=== PATIENT | female | born 1950 | race Caucasian/White ===

== ENCOUNTER 2017-07-17 05:37 | Day surgery (SDC) | payer MEDICARE, BC ==
[2017-07-14 09:43] VITALS: BMI 42.0
[2017-07-17] MEDS ORDERED: Thrombin 5000 UNITS/5 ML VIAL ONE (06:25)
[2017-07-17] MEDS ORDERED: Sodium Chloride 0.9% 10 ML ONE (06:25)
[2017-07-17] MEDS ORDERED: CEFAZOLIN/Water 2 GM/20 ML SYRINGE ONE ×2 (06:28→14:48)
[2017-07-17 06:37] LABS: Prothrombin Time 13.4 SEC (12.0-14.7)
[2017-07-17 06:38] LABS: PTT 34.8 SEC (22.9-36.1)
[2017-07-17] MEDS ORDERED: Fentanyl 100 MCG/2 ML VIAL ONE ×2 (06:38)
[2017-07-17] MEDS ORDERED: Midazolam HCl 2 mg/2 ml Vial ONE (06:38)
[2017-07-17] MEDS ORDERED: traMADol HCl 50 MG TAB PO PRN (12:10)
[2017-07-17] MEDS ORDERED: tiZANidine HCl 4 MG TAB PO PRN (12:10)
[2017-07-17] MEDS ORDERED: diphenhydrAMINE 50 MG/ML VIAL IVP PRN (12:10)
[2017-07-17] MEDS ORDERED: Ondansetron HCl/PF 4 MG/2 ML Vial IVP PRN (12:10)
[2017-07-17] MEDS ORDERED: Acetaminophen 325 MG TAB PO PRN (12:10)
[2017-07-17] MEDS ORDERED: Acetaminophen/Codeine 30-300mg Tablet PO PRN (12:10)
--- NOTE | 2017-07-17 12:35 | OP ---
DATE OF PROCEDURE: 07/17/2017 SURGEON: Les Paige M.D. INTEGRATED PEST MANAGEMENT TECHNICIAN: None. PREOPERATIVE INDICATION: Prevent neurological deterioration. 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 POSTOPERATIVE DIAGNOSES: Cervical spondylitic myelopathy, intervertebral disk disease with cord comp ression at C4-5 and C5-6. OPERATIVE PROCEDURE: Anterior cervical diskectomy, intervertebral arthrodesis, placement of interver tebral biomechanical devices and anterior cervical plating C4-C5 and C5-6, local morselized autograft , morselized Allograft, and operating microscope. PREOPERATIVE MEDICATIONS: Ancef 2 grams IV. DRAIN NUMBER: Zero. DRAIN TYPE: None. OPERATIVE DICTATION: The patient was brought to the operating room. General endotracheal anesthesia was induced. The patient was carefully positioned supine on the operating table with her head suppo rted by gel-filled donut shaped head rest. A lateral fluoro radiograph was used to plan our incision . The right side of the neck was sterilely prepped and draped. We opened with a 10 blade knife and controlled bleeding with bipolar and monopolar cautery. We dissected sharply to the platysma and cut this muscle in line with our incision. We continued our dissection medial to the sternocleidomastoi d and lateral to the trachea and esophagus until we arrived to prevertebral space. We placed a marke r at C4-C5 and took a lateral fluoro radiograph to confirm the level upon which we were operating. W e then elevated the longus colli muscles off the anterior surface of C4, C5, and C6, and placed self- retaining retractors beneath them. Distraction pins were placed at C4 and C6, and we distracted acro ss the intervening interspaces. We incised the interspaces with a 15 blade knife and removed disk co ntents using curettes and rongeurs. We brought the operating microscope into the field. Under microscopic magnification using microsurgical techniques, we carefully removed the remainder of the intervertebral disk. We removed the posterior longitudinal ligament and we accessed the ventral epidural space with a micro curet. Using Kerrison rongeurs across L4-L5 interspace, we removed the entire posterior longitudinal ligament and decompress from one nerve root all the way to the other in to the foramina and canal were widely decompressed. We turned our attention to C5-C6. Here, there w as a calcified disk fragment in the center of the canal. We had to approach it from both sides to re move it safely. This small remnant of disk and posterior longitudinal ligament was adherent behind t he C5 vertebral body. We left the corner there. Without doing a corpectomy, it could not be removed safely. However, there was pulsation within the spinal cord indicating good decompression and she n o longer had any tethering of the cord. We turned our attention to arthrodesis. Using curettes, we prepared the endplates for grafting, we measured the height of each interspace to 5 mm. Two separate 5 mm PEEK intervertebral grafts were brought into the field. We had demineralize d bone matrix and morselized autograft as our fusion substrate. This autograft was obtained from pos terior osteophytes and anterior osteophytes were removed from the vertebral bodies cleaned of soft ti ssue and morselized into the demineralized bone matrix. The PEEK grafts were advanced into the inter spaces under radiographic guidance to the appropriate depth. We then brought a 26 mm anterior cervic al plate into the field. We drilled pilot boat captain holes through the plate and vertebral bodies at C4, C5, an d C6 and affixed the plate using 14 mm screws. We use fixed angle screws at C6 and variable angle sc rews at C4 and C5. We engaged the locking mechanism over each of the 6 screws. AP and lateral fluor o radiographs confirmed adequate positioning of our instrumentation. We irrigated copiously with halie itracin irrigation. We closed the wound in anatomic layers. We applied a sterile dressing. This wa s a clean case and no contamination.
[2017-07-17] MEDS ORDERED: Dexamethasone 20 MG/5 ML VIAL ONE (14:59)
[2017-07-17] MEDS ORDERED: PROPOFOL 200 MG/20 ML VIAL ONE (14:59)
[2017-07-17] MEDS ORDERED: Metoprolol Tartrate 5 MG/5 ML VIAL ONE (14:59)
[2017-07-17] MEDS ORDERED: Glycopyrrolate 0.2 MG/ML 5 ML SYRINGE ONE (14:59)
[2017-07-17] MEDS ORDERED: Lidocaine 1% PF 5 ML VIAL ONE (14:59)
[2017-07-17] MEDS ORDERED: PHENYLEPHRINE-NS 100 MCG/ML 10 ML SYRINGE ONE (14:59)
[2017-07-17] MEDS ORDERED: Ondansetron HCl/PF 4 MG/2 ML Vial ONE (14:59)
[2017-07-17] MEDS ORDERED: CEFAZOLIN/Water 2 GM/20 ML SYRINGE SLOW IVP SCH (15:00)
== END 2017-07-17 15:02 | disposition home or self-care (01) ==
LOC: SDC 05:37
PROVIDERS: ATTEND Neurological Surgery
PROC: 0RG20A0 Fusion of 2 or more Cervical Vertebral Joints with Interbody Fusion Device, Anterior Approach, Anterior Column, Open Approach (ICD-10-PCS; principal; 2017-07-17)
DX: M47.12 Other spondylosis with myelopathy, cervical region (principal); M50.822 Other cervical disc disorders at C5-C6 level; Z98.890 Other specified postprocedural states
CPT/HCPCS: 36415; 76001; 85610; 85730; A4216; C1713; C1776; J1100; J2001; J2250; J2405; J2704; J3010; J3490